=== PATIENT | male | born 1960 | race Caucasian/White ===

== ENCOUNTER → 2020-03-17 08:55 | Outpatient (BNVA) | payer OTHER, SELFPAY | PROVIDERS: PCP Nurse Practitioner Family; Referring Provider Nurse Practitioner Family; Visit Provider Internal Medicine | DX: Z76.89 Persons encountering health services in other specified circumstances (principal) ==

== ENCOUNTER → 2020-04-29 10:12 | Outpatient (BNVA) | payer OTHER, SELFPAY | PROVIDERS: PCP Nurse Practitioner Family; Visit Provider Internal Medicine | DX: Z76.89 Persons encountering health services in other specified circumstances (principal) ==

== ENCOUNTER 2020-05-03 10:27 | Outpatient (REF) | payer OTHER, SELFPAY ==
[2020-05-03 11:43] LABS: Baso%MD 0.4 %; Eos%MD 5.2 %; Hematocrit 41.8 % (42-52); Hemoglobin 13.1 g/dl (14.0-18.0); IG%MD 0.2 %; Lymph%MD 20.8 %; Mean Corpuscular HGB Conc 31.3 g/dl (31.0-36.0); Mean Corpuscular Hemoglobin 27.2 pg (27.0-33.0); Mean Corpuscular Volume 86.7 fL (80-98); Mean Platelet Volume 12.4 fL (9.4-12.4); Mono%MD 5.6 %; Neut%MD 67.8 %; Red Blood Count 4.82 X10*6/uL (4.60-5.80); Red Cell Distribution Width 15.8 % (11.0-16.0); White Blood Count 5.2 X10*3/uL (4.8-10.8)
[2020-05-03 12:20] LABS: Platelet Count 52 X10*3/uL (160-400)
[2020-05-03 12:38] LABS: Band Neutrophils Percent 1 % (3-5); Eosinophils Absolute Manual 0.3 X10*3/UL (0.0-0.8); Eosinophils Percent Manual 5 % (0-4); Lymphocytes Absolute Manual 1.1 X10*3/uL (0.6-4.8); Lymphocytes Percent Manual 21 % (20-40); Monocytes Absolute Manual 0.3 X10*3/uL (0.0-1.2); Monocytes Percent Manual 5 % (2-11); Neutrophils Absolute Manual 3.6 X10*3/uL (2.2-7.9); Neutrophils Percent Manual 68 % (45-73)
[2020-05-03 12:39] LABS: Platelet Estimate DECREASED (NORMAL); Platelet Morphology Comment NORMAL; RBC Morphology NORMAL
== END 2020-05-03 10:28 | disposition home or self-care (01) ==
LOC: HO.HMGCLDS 10:27
PROVIDERS: PCP Nurse Practitioner Family; Visit Provider Nurse Practitioner Family
DX: D47.3 Essential (hemorrhagic) thrombocythemia (principal)
CPT/HCPCS: 36415; 85007; 85027

== ENCOUNTER 2020-05-12 08:09 | Outpatient (REF) | payer OTHER, SELFPAY ==
--- NOTE | 2020-05-12 08:13 | US_ITS ---
EXAMINATION: US THYROID CLINICAL INFORMATION: Nontoxic single thyroid nodule. COMPARISON: Ultrasound soft tissue head/neck thyroid dated 11/06/2018. TECHNIQUE: Linear transducer vela-scale and color Doppler examination with attention to the region of the thyroid. FINDINGS: SIZE: Measurements of the thyroid lobes and nodules are given in sagittal, anteroposterior and transverse dimensions respectively. Right Thyroid Lobe: 4.6 x 1.8 x 2.2 cm, volume 9.6 mL. Previously 5.9 x 2.1 x 1.9 cm, volume 11.9 mL. Parenchyma: The gland echotexture is homogeneous. Thyroid vascularity is normal. Left Thyroid Lobe: 4.5 x 1.9 x 1.9 cm, volume 8.5 mL. Previously 5.2 x 1.7 x 1.7 cm, volume 7.7 mL. Parenchyma: The gland echotexture is homogeneous. Thyroid vascularity is normal. Isthmus: 0.3 cm in maximum AP dimension. Previously 0.4 cm. RIGHT THYROID LOBE: No nodules. ISTHMUS: No nodules. LEFT THYROID LOBE: There is 1 nodule seen. 1. Location: Inferior. Size: 1.7 x 1.4 x 1.4 cm. Previous: 1.6 x 1.5 x 1.3 cm. Nodule characteristics: Heterogeneous, smooth margins with hypoechoic rind, no calcification and peripheral flow. This appears more solid and less cystic than on prior exam. NODES: No lymphadenopathy is seen in the tissue surrounding the thyroid gland. US/US thyroid IMPRESSION: Question minimal increase in size in the left thyroid nodule. This appears more solid and less cystic than on previous exam.
--- NOTE | 2020-05-12 08:13 | CT_ITS ---
EXAMINATION: CT SOFT TISSUE NECK WITHOUT CONTRAST CLINICAL INFORMATION: Nontoxic single thyroid nodule COMPARISON: None TECHNIQUE: Helical imaging was performed in the axial plane with generation of coronal and sagittal reformatted images. This CT examination was performed using dose optimization techniques as appropriate, variously including the following: *Automated exposure control *Adjustment of mA and/or kV according to patient size (this includes techniques or standardized protocols for targeted exams where dose is matched to indication/reason for exam; i.e. extremities or head) *Use of iterative reconstruction technique DLP: 454 mGy-cm FINDINGS: There are small shotty lymph nodes in the anterior neck. The parotid glands are homogeneous in attenuation. The submandibular glands are normal. No contour abnormality or pathologic enhancement is seen within the oral cavity or pharyngeal mucosal space. There is an ectatic right internal carotid artery extending medially into the retropharyngeal soft tissues. The laryngeal structures are normal. The parapharyngeal fat is preserved. The carotid sheath vasculature opacify normally. No extra mucosal soft tissue mass or fluid collection is seen. No retropharyngeal fluid collection is seen. There is solitary hypodense nodule, lower pole left thyroid lobe measuring 1.5 x 1.0 x 1.23 cm. The superior mediastinum is unremarkable. There is mild emphysematous changes of upper lobes with the loss of left lung volume. There is chronic mucoperiosteal thickening bilateral ethmoid and maxillary sinuses. The rest of the paranasal sinuses are well aerated. The mastoid sinuses are clear. The temporomandibular joints are normal. There are degenerative disc changes C4-C5, C5-C6 and C6-C7 disc levels with ventral and posterior spondylosis. No lytic process seen. No periapical disease is identified. No osseous abnormalities are seen. The imaged portions of the brain parenchyma are unremarkable. CT/CT soft tissue neck wo con IMPRESSION: 1. Solitary nodule left lower pole. 2. No abnormal neck lymphadenopathy seen. 3. Ectatic right internal carotid artery extending medially into the retropharyngeal space. 4. Chronic bilateral maxillary ethmoid sinuses.
== END 2020-05-12 08:10 | disposition home or self-care (01) ==
LOC: HO.CT 08:09
PROVIDERS: Visit Provider Internal Medicine
DX: E04.1 Nontoxic single thyroid nodule (principal)
CPT/HCPCS: 70490; 76536

== ENCOUNTER → 2020-05-20 11:54 | Outpatient (BNVA) | payer OTHER, SELFPAY | PROVIDERS: PCP Nurse Practitioner Family; Visit Provider Internal Medicine ==

== ENCOUNTER 2020-05-24 10:55 | Outpatient (REF) | payer OTHER, SELFPAY ==
--- NOTE | 2020-05-24 11:01 | US_ITS ---
EXAMINATION: ULTRASOUND-GUIDED THYROID FINE-NEEDLE ASPIRATION CLINICAL INFORMATION: Left thyroid nodule COMPARISON: Previous thyroid ultrasound most recent April 2020 TECHNIQUE: Procedure risks and benefits including bleeding and infection were discussed with the patient and informed consent was obtained. The left neck was prepped and draped in usual sterile fashion. The skin and soft tissues were anesthetized with 1% lidocaine plain. Using ultrasound guidance and a 25-gauge needle, access to the complex cystic nodule in the inferior left lobe was obtained. 2 25-gauge FNA specimens were obtained. FINDINGS: There is a 1.7 x 1.5 x 1.4 cm complex cystic nodule in the inferior left lobe with thick echogenic wall that was targeted for fine-needle aspiration. Post fine-needle aspiration, the cystic component is no longer seen and the nodule appears smaller and slightly hyperechoic with respect to the thyroid gland. US/US guided fine needle asp IMPRESSION: Ultrasound-guided fine-needle aspiration of left thyroid nodule.
[2020-05-24] MEDS: Lidocaine HCl 1 % MPF 5 ML VIAL SUBCUT (12:11)
== END 2020-05-24 10:56 | disposition home or self-care (01) ==
LOC: HO.US 10:55
PROVIDERS: PCP Nurse Practitioner Family; Visit Provider Internal Medicine
DX: E04.1 Nontoxic single thyroid nodule (principal)
CPT/HCPCS: 10005; 88172; 88173; 88305

== ENCOUNTER → 2020-06-23 14:39 | Outpatient (BNVA) | payer OTHER, SELFPAY | PROVIDERS: PCP Nurse Practitioner Family; Visit Provider Nurse Practitioner Family ==

== ENCOUNTER → 2020-07-01 08:46 | Outpatient (BNVA) | payer OTHER, SELFPAY | PROVIDERS: PCP Nurse Practitioner Family; Visit Provider Internal Medicine ==

== ENCOUNTER → 2020-07-12 14:00 | Outpatient (BNVA) | payer OTHER, SELFPAY | PROVIDERS: PCP Nurse Practitioner Family; Visit Provider Internal Medicine Pulmonary Disease | DX: Z01.811 Encounter for preprocedural respiratory examination (principal); J44.9 Chronic obstructive pulmonary disease, unspecified; F17.200 Nicotine dependence, unspecified, uncomplicated; Z71.6 Tobacco abuse counseling | CPT/HCPCS: 99202 ==

== ENCOUNTER → 2020-07-19 13:28 | Outpatient (BNVA) | payer OTHER, SELFPAY | PROVIDERS: PCP Nurse Practitioner Family; Visit Provider Internal Medicine Gastroenterology | DX: Z12.11 Encounter for screening for malignant neoplasm of colon (principal); K74.60 Unspecified cirrhosis of liver; D69.6 Thrombocytopenia, unspecified; Z90.81 Acquired absence of spleen | CPT/HCPCS: 99212 ==

== ENCOUNTER → 2020-07-29 16:00 | Outpatient (BNVA) | payer OTHER, SELFPAY | PROVIDERS: PCP Nurse Practitioner Family; Visit Provider Internal Medicine Gastroenterology ==

== ENCOUNTER 2020-08-16 11:01 | Outpatient (REF) | payer OTHER, SELFPAY ==
--- NOTE | ~2020-08-16 | US_ITS ---
EXAMINATION: US ABDOMEN COMPLETE CLINICAL INFORMATION: Thrombocytopenia, unspecified. COMPARISON: Ultrasound kidneys 11/22/2018. Ultrasound kidneys and bladder 07/15/2018. CT abdomen 01/05/2016. TECHNIQUE: Real-time imaging of the abdominal viscera. FINDINGS: PANCREAS: Obscured by bowel gas. ABDOMINAL AORTA: Obscured by bowel gas. INFERIOR VENA CAVA: Visualized portions are normal. LIVER: Diffuse increased echogenicity. Heterogeneous echotexture of the parenchyma. Apparent mild intrahepatic biliary duct dilatation. No focal liver lesion. GALLBLADDER: Gallbladder is distended. No shadowing calculi. No gallbladder wall thickening. Questionable trace pericholecystic fluid. Nonspecific tenderness in the area of the gallbladder. COMMON BILE DUCT: Normal in caliber measuring 0.6 cm in diameter. RIGHT KIDNEY: Surgically absent. LEFT KIDNEY: Normal. No hydronephrosis. No renal calculi or focal parenchymal lesions. The kidney measures 11.7 cm in maximum dimension. SPLEEN: Enlarged. The spleen measures 24.3 cm in maximum dimension. FREE FLUID: None. US/US abdomen complete IMPRESSION: 1. There is generalized increase in hepatic echotexture, consistent with fatty infiltration or hepatocellular disease. Please correlate clinically. No focal hepatic mass. Mild intrahepatic biliary duct dilatation is seen. 2. No cholelithiasis seen. Gallbladder is distended. Questionable trace pericholecystic fluid. Nonspecific tenderness in the area of the gallbladder. Findings of indeterminate etiology. Further evaluation with HIDA scan as clinically warranted. 3. Splenomegaly. Spleen measures 24.3 cm. This was previously measured as 16.3 cm on the prior ultrasound 11/22/2018. 4. Right kidney surgically absent. 5. Pancreas obscured by bowel gas.
[2020-08-16 12:08] LABS: Hematocrit 42.1 % (42-52); Hemoglobin 13.6 g/dl (14.0-18.0); Mean Corpuscular HGB Conc 32.3 g/dl (31.0-36.0); Mean Corpuscular Hemoglobin 27.8 pg (27.0-33.0); Mean Corpuscular Volume 86.1 fL (80-98); Mean Platelet Volume 12.5 fL (9.4-12.4); Red Blood Count 4.89 X10*6/uL (4.60-5.80); Red Cell Distribution Width 15.3 % (11.0-16.0); White Blood Count 6.5 X10*3/uL (4.8-10.8)
[2020-08-16 12:13] LABS: INTERNATIONAL NORM RATIO 1.2 (0.9-1.1); Prothrombin Time 14.1 SEC (10.8-13.0)
[2020-08-16 12:19] LABS: Platelet Count 52 X10*3/uL (160-400)
[2020-08-16 12:50] LABS: Alanine Aminotransferase 24 U/L (0-40); Albumin Level 4.5 g/dL (3.5-5.0); Alkaline Phosphatase 118 U/L (39-117); Anion Gap 12 (12-20); Aspartate Amino Transferase 27 U/L (5-37); Blood Urea Nitrogen 23 mg/dL (9-16); Calcium 8.7 mg/dL (8.4-10.2); Carbon Dioxide 23 mmol/L (22-29); Chloride 106 mmol/L (96-108); Cholesterol 103 mg/dL; Estimated Glomerular Filt Rate 58; Glucose Fasting 119 mg/dL (60-99); HDL Cholesterol 26 mg/dL; LDL Cholesterol Calculated 49 mg/dl; Sodium 136 mmol/L (135-145); Total Protein 7.9 g/dL (6.5-8.0); Triglycerides 140 mg/dL
[2020-08-16 12:57] LABS: Free T4 (Free Thyroxine) 0.88 ng/dL (0.71-1.85); Thyroid Stimulating Hormone 1.09 uIU/mL (0.32-4.0)
[2020-08-16 13:11] LABS: Prostate Specific Antigen Scr 0.37 ng/mL (<0.05-4.0); TSH reflex Free T4 0.98 uIU/mL (0.32-4.0)
[2020-08-17 18:26] LABS: HCV Log PCR <1.18 NOT DETECTED Log IU/mL (NOT DETECTED); HepC Viral Load <15 NOT DETECTED IU/mL (NOT DETECTED)
[2020-08-18 10:01] LABS: Mitochondrial Antibodies NEGATIVE (NEGATIVE)
[2020-08-19 15:07] LABS: FIB-ALT 20 U/L (9-46); FIB-Alpha-2-Macroglobulin 320 mg/dL (106-279); FIB-Apolipoprotein A1 116 mg/dL (94-176); FIB-GGT 197 U/L (3-70); FIB-Haptoglobin 42 mg/dL (43-212); FIB-Total Bilirubin 0.8 mg/dL (0.2-1.2); Liver Fibrosis Stage F4; Nec Inflam Act Grade A0-A1; Nec Inflam Act Score 0.18
[2020-08-24 12:02] LABS: Smooth Muscle Antibody <20 U (<20)
== END 2020-08-16 11:02 | disposition home or self-care (01) ==
LOC: HO.US 11:01
PROVIDERS: Absent Provider Internal Medicine; PCP Nurse Practitioner Family; Referring Provider Nurse Practitioner Family; Visit Provider Internal Medicine Gastroenterology
DX: Z12.5 Encounter for screening for malignant neoplasm of prostate (principal); Z12.11 Encounter for screening for malignant neoplasm of colon; E04.1 Nontoxic single thyroid nodule; K74.60 Unspecified cirrhosis of liver; D69.6 Thrombocytopenia, unspecified
CPT/HCPCS: 36415; 76700; 80053; 80061; 81596; 84153; 84439; 84443; 85027; 85610; 86255; 86256; 87522

== ENCOUNTER → 2020-10-07 10:49 | Outpatient (REF) | payer OTHER, SELFPAY ==
--- NOTE | ~2020-10-07 | NM_ITS ---
EXAMINATION: NM HIDA SCAN CLINICAL INFORMATION: Nonspecific tenderness right upper quadrant with pericystic fluid collection on ultrasound exam 08/16/2020. COMPARISON: None TECHNIQUE: Following intravenous administration of 5 mCi of 99m technetium mebrofenin, imaging over the right upper quadrant was obtained up to 60 minutes. At 60 minutes, oral Ensure was administered and further imaging was obtained up to next 60 minutes. FINDINGS: There is normal hepatic uptake with no focal defects seen. The CBD is visualized by 27 minutes. Small bowel is visualized by 60 minutes. Gallbladder is visualized by 86 minutes. Following oral administration of Ensure, no gallbladder contraction seen. However, the gallbladder was delayed, visualized by 86 minutes. NM/NM hepatobiliary wo pharm IMPRESSION: Delayed visualization of gallbladder by 86 minutes, likely gallbladder disease. Gallbladder ejection fraction cannot be calculated due to delayed visualization after oral administration of Ensure. Patent cystic duct and patent CBD.
[2020-10-07 15:17] LABS: Estimated Average Glucose 108 mg/dL; Hemoglobin A1c % 5.4 %
[2020-10-07 15:30] LABS: Alanine Aminotransferase 18 U/L (0-40); Albumin Level 4.4 g/dL (3.5-5.0); Alkaline Phosphatase 106 U/L (39-117); Anion Gap 14 (12-20); Aspartate Amino Transferase 24 U/L (5-37); Bilirubin Total 0.8 mg/dL (0.0-1.0); Blood Urea Nitrogen 18 mg/dL (9-16); Carbon Dioxide 25 mmol/L (22-29); Chloride 106 mmol/L (96-108); Cholesterol 106 mg/dL; Estimated Glomerular Filt Rate 58; Glucose Fasting 103 mg/dL (60-99); HDL Cholesterol 26 mg/dL; LDL Cholesterol Calculated 49 mg/dl; Potassium 4.8 mmol/L (3.3-5.1); Sodium 140 mmol/L (135-145); Total Protein 7.6 g/dL (6.5-8.0); Triglycerides 157 mg/dL
[2020-10-07 15:49] LABS: Prostate Specific Antigen Scr 0.83 ng/mL (<0.05-4.0); TSH reflex Free T4 0.45 uIU/mL (0.32-4.0)
== END ==
LOC: HO.NUCMED 10:49
PROVIDERS: Nurse Practitioner Family; Visit Provider Internal Medicine Gastroenterology
DX: R93.2 Abnormal findings on diagnostic imaging of liver and biliary tract (principal); I10 Essential (primary) hypertension; R73.01 Impaired fasting glucose; Z12.5 Encounter for screening for malignant neoplasm of prostate
CPT/HCPCS: 36415; 78226; 80053; 80061; 83036; 84153; 84443; A9537

== ENCOUNTER → 2020-10-29 10:52 | Outpatient (BNVA) | payer OTHER, SELFPAY | PROVIDERS: PCP Nurse Practitioner Family; Visit Provider Internal Medicine Pulmonary Disease | DX: J44.9 Chronic obstructive pulmonary disease, unspecified (principal) | CPT/HCPCS: 99212 ==

== ENCOUNTER → 2020-11-08 13:28 | Outpatient (BNVA) | payer OTHER, SELFPAY | PROVIDERS: Referring Provider Nurse Practitioner Family; Visit Provider Internal Medicine Gastroenterology | DX: R93.2 Abnormal findings on diagnostic imaging of liver and biliary tract (principal); Z12.11 Encounter for screening for malignant neoplasm of colon; J44.9 Chronic obstructive pulmonary disease, unspecified; K74.60 Unspecified cirrhosis of liver; D69.6 Thrombocytopenia, unspecified; Z90.81 Acquired absence of spleen; Z86.19 Personal history of other infectious and parasitic diseases | CPT/HCPCS: 99212 ==

== ENCOUNTER 2021-03-09 09:55 | Outpatient (REF) | payer OTHER, SELFPAY ==
--- NOTE | ~2021-03-09 | XR_ITS ---
EXAMINATION: XR CHEST CLINICAL INFORMATION: Cough. COMPARISON: Chest x-ray 08/09/2018. TECHNIQUE: 2 views of the chest were obtained. FINDINGS: The lungs are well-expanded and clear acute process. There is mild blunting of left CP angle from pleural thickening or effusion. The heart size and pulmonary vascularity is normal. XR/XR chest 2V IMPRESSION: Mild blunting of left CP angle from pleural effusion and thickening. No acute pneumonic process seen.
== END 2021-03-09 09:56 | disposition home or self-care (01) ==
LOC: HO.HMGCX 09:55
PROVIDERS: PCP Nurse Practitioner Family; Visit Provider Physician Assistant Medical
DX: R05.9 Cough, unspecified (principal); J44.9 Chronic obstructive pulmonary disease, unspecified
CPT/HCPCS: 71046

== ENCOUNTER 2021-07-18 08:50 | Outpatient (REF) | payer OTHER, SELFPAY ==
--- NOTE | ~2021-07-18 | US_ITS ---
EXAMINATION: US THYROID CLINICAL INFORMATION: Nontoxic single thyroid nodule. COMPARISON: Thyroid ultrasound 05/12/2020. Ultrasound-guided thyroid fine-needle aspiration 05/24/2020. TECHNIQUE: Linear transducer vela-scale and color Doppler examination with attention to the region of the thyroid. FINDINGS: SIZE: Measurements of the thyroid lobes and nodules are given in sagittal, anteroposterior and transverse dimensions respectively. Right Thyroid Lobe: 5.0 x 1.6 x 1.7 cm, volume 7.0 mL. Previously 4.6 x 1.8 x 2.2 cm, volume 9.6 mL. Parenchyma: The gland echotexture is homogeneous. Thyroid vascularity is normal. Left Thyroid Lobe: 4.6 x 2.1 x 1.6 cm, volume 7.8 mL. Previously 4.5 x 1.9 x 1.9 cm, volume 8.5 mL. Parenchyma: The gland echotexture is homogeneous. Thyroid vascularity is normal. Isthmus: 0.2 cm in maximum AP dimension. Previously 0.3 cm. Estimated total number of nodules greater than or equal to 1 cm: 1. Marketing Support Manager nodules are described as follows: 1. Location: Left inferior. Size: 1.9 x 1.6 x 1.3 cm, volume 2.0 mL. Previously: 1.7 x 1.4 x 1.4 cm, volume 1.7 mL. Nodule characteristics: Composition: Mixed cystic and solid (1). Echogenicity: Hyperechoic (1). Shape: Taller than wide (3). Margins: Smooth (0). Echogenic Foci: None (0). ACR TI-RADS total points: 5 ACR TI-RADS category: 4 Significant change in size (>/= 20% in 2 dimensions and minimal increase of 2 mm or 50% or greater increase in volume): None Change in features: Not applicable Change in ACR TI-RADS risk category: Not applicable NODES: No lymphadenopathy is seen in the tissue surrounding the thyroid gland. US/US thyroid IMPRESSION: Mixed attenuation nodule lower pole left lobe, suspicious. Recommend short-term six-month to one-year follow-up.. ACR TI-RADS RECOMMENDATION REFERENCE: Ultrasound-guided fine-needle aspiration, followup ultrasound, no further follow up. * TR1 (0 point) and TR 2 (2 points): No FNA or follow up * TR3 (3 points): FNA if more than or equal to 2.5 cm in maximum dimension, followup ultrasound in 1, 3 and 5 years if 1.5 to 2.4 cm in maximum dimension. * TR4 (4-6 points): FNA if more than or equal to 1.5 cm in maximum dimension, followup ultrasound in 1, 2, 3 and 5 years if 1 to 1.4 cm in maximum dimension. * TR5 (more than or equal to 7 points): FNA if more than or equal to 1 cm in maximum dimension, followup ultrasound every year for 5 years if 0.5 to 0.9 cm in maximum dimension. * TR3, TR4 or TR5 nodules that are below the size threshold for follow up receive no follow up.
== END 2021-07-18 08:51 | disposition home or self-care (01) ==
LOC: HO.US 08:50
PROVIDERS: PCP Nurse Practitioner Family; Visit Provider Internal Medicine
DX: E04.1 Nontoxic single thyroid nodule (principal)
CPT/HCPCS: 76536

== ENCOUNTER 2023-01-09 10:27 | Outpatient (AMB) | payer OTHER, SELFPAY ==
--- NOTE | 2023-01-09 10:57 | A.OFFPC_ITS ---
Vital Signs 01/09/23 10:58 Height 5 ft 10 in Weight 189 lb BMI 27.1 BP 110/74 Blood Pressure Location Rt brachial Position Sitting Pulse 75 Pulse Source Pulse Oximeter Pulse Oximetry (%) 97 Oxygen Delivery Method Room Air Intake Visit Reasons: 3m follow up htn Allergies No Known Allergies [No Known Allergies*] Allergy (Verified 01/09/23 11:00) Medication List - Last Reconciled 01/09/23 by JOSE Desir albuterol sulfate 2.5 mg (3 mL) inhalation Q8H PRN 30 days atorvastatin 40 mg PO DAILY [id number] 50-325-40 mg 1 tab PO ONCE PRN 30 days clonazepam 1 mg PO TID metoprolol tartrate 50 mg PO DAILY 30 days ondansetron HCl 4 - 8 mg PO Q8H PRN prednisone 20 mg PO DAILY 3 days umeclidinium-vilanterol 62.5-25 mcg/actuation (Anoro Ellipta) 1 ea PO DAILY Tobacco use date assessed: 01/09/23 Dental Screening Dental Screen Date: 01/09/23 Did you have a dental visit in the last 12 months?: No Did you have a dental problem in the last 6 months where you did not have access to dental care?: No Was dental information given to patient?: No HPI 3m follow up htn HPI Details HTN: Blood pressure is stable, managed with metoprolol 50mg. Denies chest pain, excessive shortness of breath, headache, dizziness, and blurred vision. Pt is following up with oncology due to lung cancer. Pt was given doxy and prednisone for possible sinusitis and otitis media. Pt did not finish the course of prednisone as it caused vomiting. Will send 3 more days of prednisone, pt will take this with food. Pt saw GI in 2020 and was advised to schedule a colon screen but he did not do this. encouraged pt to get his labs drawn [facility] Medical History (Updated 01/09/23 @ 12:28 by JOSE Desir) Squamous cell carcinoma of left lung Neuropathy HTN (hypertension) Kidney carcinoma COPD (chronic obstructive pulmonary disease) Cirrhosis Vitamin D deficiency Thrombocytopenia Thyroid nodule Surgical History History of lung biopsy Hx of anterior cruciate ligament surgery History of right nephrectomy Family History Father Cancer CVD (cardiovascular disease) S/P triple vessel bypass Mother Lung cancer Diabetes Social History Household Members: None Housing: House Alcohol intake: current Alcohol intake frequency: does not drink Patient Tobacco Use Status: Current someday Tobacco user Years Smoked: 30 Packs per year/per ci e-Cigarette/Vaping Use: Never Used Second Hand Smoke Exposure: Yes Current occupational status: retired Cognitive needs: No Hearing needs: No Vision needs: Yes Questionnaire Thrive Questionnaire Date Thrive assessed: 05/29/22 JOSE-7 AMB Questionnaire JOSE-7 Date JOSE - 7 assessed: 05/29/22 Source: Developed by Drs. Joseph Sheridan, Inés Dozier, Diallo Cárdenas and colleagues, with an educational keaton from [employer]. Review of Systems Const Reports as per HPI Physical exam (Primary Care) Vital Signs: Last Vital Signs Pulse 75 01/09/23 10:58 BP 110/74 01/09/23 10:58 Pulse Ox 97 01/09/23 10:58 Oxygen Delivery Method Room Air 01/09/23 10:58 BMI result Body Mass Index 27.1 Tobacco/Smoking Status: Tobacco use Status Tobacco use date assessed 01/09/23 01/09/23 11:05 Patient Tobacco Use Status Current someday Tobacco 01/09/23 11:05 e-Cigarette/Vaping Use Never Used 01/09/23 11:05 Thrive Assessment: Date of Thrive Assessment Date Thrive assessed 05/29/22 01/09/23 11:05 Const General: cooperative Orientation/consciousness: patient oriented x3 HENMT Head: Yes normal to inspection Ears: TM's normal bilaterally Neck Lymphatic: no lymphadenopathy noted Resp Effort & Inspection: normal respiratory effort Auscultation: wheezes throughout Cardio Rate: regular rate Rhythm: regular rhythm Heart sounds: S1 normal heart sound present and S2 normal heart sound present Neuro General: patient oriented x3 Extrem Other: no edema to BLE Psych Appearance: grossly normal Mental Status: mental status grossly normal Speech and movement: Normal speech and movement present Affect: normal affect Attitude: cooperative Thought process: Normal thought process present Thought content: Normal thought content present Insight: Good insight present (Psych) Judgement: Good judgement present (Psych) Assessment and Plan Assessment & Plan (1) HTN (hypertension): Code(s): I10 - Essential (primary) hypertension (2) Illness: Code(s): R69 - Illness, unspecified Plan The patient agreed to the use of a medical imaging technologist for this encounter. Scribed for JOSE Holcomb by Palma Tanner medical imaging technologist, on 01/09/2023 at 11:15 EST. Medications: New prednisone 20 mg PO DAILY 3 tabs 0RF 3 days Refilled [id number]-[id number] 50-325-40 mg please use sparingly, can cause rebound headaches and can be addictive 1 tab PO ONCE PRN 30 tabs 0RF pain 30 days Coding Level of Care Code Est Pt Level 3 (58862) Diagnoses HTN (hypertension) I10 Illness R69
[2023-01-09 10:58] VITALS: BP 110/74; PULSE 75; O2SAT 97; BMI 27.1
== END 2023-01-09 12:04 | disposition home or self-care (01) ==
PROVIDERS: PCP Nurse Practitioner Family; Visit Provider Nurse Practitioner Family
DX: I10 Essential (primary) hypertension (principal); R69 Illness, unspecified
CPT/HCPCS: 99213

== ENCOUNTER 2023-07-25 10:37 | Outpatient (REF) | payer OTHER, SELFPAY ==
[2023-07-25 13:29] LABS: MANUAL DIFF FLAG NO
[2023-07-25 13:49] LABS: Basophils Percent Auto 0.5 % (0-2); Eosinophils Absolute Auto 0.1 X10*3/uL (0.0-0.4); Eosinophils Percent Auto 3.4 % (0-4); Hematocrit 25.1 % (42.0-52.0); Imm Gran Abs Auto 0.02 X10*3/uL (0.00-0.03); Imm Gran Pct Auto 0.5 % (0.0-0.4); Lymphocytes Absolute Auto 0.7 X10*3/uL (1.2-4.9); Lymphocytes Percent Auto 17.2 % (20-40); Mean Corpuscular HGB Conc 27.5 g/dl (31.0-36.0); Mean Corpuscular Hemoglobin 21.2 pg (27.0-33.0); Monocytes Absolute Auto 0.3 X10*3/uL (0.1-1.2); Monocytes Percent Auto 6.8 % (2-11); Neutrophils Absolute Auto 2.8 x10*3/uL (2.0-8.3); Neutrophils Percent Auto 71.6 % (45-73); Red Blood Count 3.26 X10*6/uL (4.60-5.80); Red Cell Distribution Width 17.8 % (11.0-16.0); White Blood Count 3.8 X10*3/uL (4.8-10.8)
[2023-07-25 14:10] LABS: Platelet Count 39 X10*3/uL (160-400)
[2023-07-25 14:12] LABS: Hemoglobin 6.9 g/dl (14.0-18.0)
[2023-07-25 14:21] LABS: Prostate Specific Antigen Scr 0.33 ng/mL (<0.05-4.0)
[2023-07-25 14:27] LABS: Alanine Aminotransferase 19 U/L (0-40); Albumin Level 3.5 g/dL (3.5-5.0); Alkaline Phosphatase 71 U/L (39-117); Anion Gap 9 (12-20); Aspartate Amino Transferase 22 U/L (5-37); Bilirubin Total 0.4 mg/dL (0.0-1.0); Blood Urea Nitrogen 17 mg/dL (9-16); Calcium 8.6 mg/dL (8.4-10.2); Carbon Dioxide 29 mmol/L (22-29); Chloride 107 mmol/L (96-108); Cholesterol 87 mg/dL (<200); Estimated Glomerular Filt Rate > 60; Glucose Fasting 113 mg/dL (60-99); HDL Cholesterol 37 mg/dL (>40); LDL Cholesterol Calculated 36 mg/dL (<100); Potassium 4.4 mmol/L (3.3-5.1); Sodium 141 mmol/L (135-145); Total Protein 6.6 g/dL (6.5-8.0); Triglycerides 73 mg/dL (<150)
== END 2023-07-25 10:38 | disposition home or self-care (01) ==
LOC: HO.HMGCLDS 10:37
PROVIDERS: PCP Nurse Practitioner Family; Visit Provider Nurse Practitioner Family
DX: I10 Essential (primary) hypertension (principal); Z12.5 Encounter for screening for malignant neoplasm of prostate
CPT/HCPCS: 36415; 80053; 80061; 84153; 84443; 85025

== ENCOUNTER 2023-07-25 16:29 | Emergency (ER) | payer OTHER, SELFPAY ==
[2023-07-25 17:22] VITALS: BP 116/57; PULSE 82; RESP 20; TEMP 36.3; O2SAT 99; BMI 24.4
--- NOTE | 2023-07-25 17:24 | ED_ITS ---
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 , thrombocytopenia history of PE on Eliquis does have off and on black stools sent from PCP office for hemoglobin 7.0 patient had blood transfusion long time ago feels weak no abdominal pain patient's usual hemoglobin is around 11 according to patient Related Data Home Medications Medication Instructions Recorded Confirmed clonazepam 1 mg tablet 1 mg PO TID 03/17/20 01/09/23 ondansetron HCl 4 mg tablet 4 - 8 mg PO Q8H PRN nausea 09/28/22 01/09/23 Previous Rx's Medication Instructions Recorded atorvastatin 40 mg tablet 40 mg PO DAILY #90 tabs 09/14/22 prednisone 20 mg tablet 20 mg PO DAILY 3 days #3 tabs 01/09/23 umeclidinium 62.5 mcg-vilanterol 1 ea PO DAILY #180 ea 04/03/23 25 mcg/actuation powdr for inhalation (Anoro Ellipta) ingyaqtipo-zpaunpjxongul-zvrwlfad 1 tab PO ONCE PRN pain 30 days #30 04/12/23 50 mg-325 mg-40 mg tablet tabs albuterol sulfate 2.5 mg/3 mL 2.5 mg (3 mL) inhalation Q8H PRN 06/04/23 (0.083 %) solution for nebulization shortness of breath or wheezing 30 days #180 mL Ventolin HFA 90 mcg/actuation 1 puff inhalation QID PRN 07/07/23 aerosol inhaler (albuterol sulfate) shortness of breath or wheezing #8 grams metoprolol tartrate 50 mg tablet 50 mg PO DAILY 30 days #30 tabs 07/07/23 Allergies Allergy/AdvReac Type Severity Reaction Status Date / Time No Known Allergies Allergy Verified 01/09/23 11:00 [No Known Allergies*] Review of Systems 2 Review of Systems: Yes all other systems are reviewed and are negative PMFSH Past Medical History Medical History Squamous cell carcinoma of left lung Neuropathy HTN (hypertension) Kidney carcinoma COPD (chronic obstructive pulmonary disease) Cirrhosis Vitamin D deficiency Thrombocytopenia Thyroid nodule Surgical History History of lung biopsy Hx of anterior cruciate ligament surgery History of right nephrectomy Family History Family History Father Cancer CVD (cardiovascular disease) S/P triple vessel bypass Mother Lung cancer Diabetes Social History Social History Household Members: None Housing: House Alcohol intake: current Alcohol intake frequency: does not drink Patient Tobacco Use Status: Current someday Tobacco user Years Smoked: 30 Smoked in Last 30 Days: No e-Cigarette/Vaping Use: Never Used Second Hand Smoke Exposure: Yes Use of substances other than those prescribed or required for medical reasons: No Advance Directives: No Advance Directives Information Provided: No Current occupational status: retired Cognitive needs: No Hearing needs: No Vision needs: Yes Physical Exam ED Vital Signs: Vital Signs - 24 hr 07/25/23 17:22 07/25/23 20:11 07/25/23 21:18 Temperature 97.3 F 97.6 F 97.5 F Pulse Rate 82 73 74 Respiratory Rate 20 16 15 Blood Pressure 116/57 L 110/50 L 111/72 Pulse Oximetry 99 97 Oxygen Delivery Method Room Air Room Air 07/25/23 21:35 07/25/23 21:35 07/25/23 22:26 Temperature 97.5 F 98.1 F Pulse Rate 77 79 Respiratory Rate 15 16 Blood Pressure 128/55 L 113/65 Pulse Oximetry 97 97 Oxygen Delivery Method Room Air Room Air 07/25/23 23:34 07/26/23 00:04 07/26/23 00:05 Temperature 98.2 F 97.3 F 97.7 F Pulse Rate 80 87 80 Respiratory Rate 16 16 18 Blood Pressure 118/67 112/73 112/73 Pulse Oximetry 98 97 Oxygen Delivery Method Room Air Room Air 07/26/23 00:10 Temperature 97.7 F Pulse Rate 80 Respiratory Rate 18 Blood Pressure 112/73 Pulse Oximetry 97 Oxygen Delivery Method Room Air BMI result Body Mass Index 24.4 Appearance: Alert. Oriented X3. No acute distress. Eyes: pallor+ no icterus ENT: Pharynx normal. Oral Mucosa moist Neck: Normal inspection. Neck supple. CVS: Normal heart rate and rhythm. Pulses normal. Respiratory: No respiratory distress. Equal air entry bilateral, no wheezing/rales/rhonchi Abdomen: Soft and nontender. Bowel sounds are present, no mass palpable, no CVA tenderness rectal: Brown stool guaiac negative Skin: Skin warm and dry. Normal skin color. Normal skin turgor. Extremities: No lower extremity edema. No calf tenderness Neuro: Oriented X 3. No motor deficit. Course Course Course Narrative: This is an RME: Additional HPI, ROS, PE not included below will be deferred to primary provider. This is a 63-year-old male, with a history of hypertension, squamous cell carcinoma along, COPD exacerbation, thrombocytopenia, splenomegaly, hepatitis-C with completed treatment substance use disorder, presenting to the emergency department due to abnormal labs. He was told that his blood count was low and had to reports the emergency room for further evaluation. He states that he at times does get a bloody nose. Has not noticed any black or bloody stool. He is reporting increased weakness and shortness of breath. He was recently put on Eliquis. Plan: Labs Medications Administered Discontinued Medications Generic Name Dose Route Start Last Admin Trade Name Freq PRN Reason Stop Dose Admin Sodium Chloride 100 mls @ 100 mls/hr 07/25/23 19:57 07/25/23 22:35 Ns IV 07/25/23 20:56 Infused ONCE ONE Infusion Medical Decision Making Medical Decision Making [facility] Narrative: Patient with lung cancer with thrombocytopenia anemia unlikely from chronic disease secondary to cancer. Patient received 1 unit of PRBC , advised to follow with PCP/Hematology Lab Data [facility] Lab Attestation statement: I reviewed the patient's lab results. 07/25/23 17:46 07/25/23 17:46 Labs: Lab Results 07/25/23 07/25/23 07/26/23 Range/Units 17:46 20:05 00:08 WBC 4.9 (4.8-10.8) X10*3/uL RBC 3.34 L (4.60-5.80) X10*6/uL Hgb 7.0 L* (14.0-18.0) g/dl Hct 25.5 L (42.0-52.0) % MCV 76.3 L (80.0-98.0) fL MCH 21.0 L (27.0-33.0) pg MCHC 27.5 L (31.0-36.0) g/dl RDW 17.9 H (11.0-16.0) % Plt Count 44 L (160-400) X10*3/uL MPV Not Reportable Immature Gran % (Auto) 0.2 (0.0-0.4) % Neut % (Auto) 83.4 H (45-73) % Lymph % (Auto) 9.0 L (20-40) % Swisher % (Auto) 4.3 (2-11) % Eos % (Auto) 2.7 (0-4) % Baso % (Auto) 0.4 (0-2) % Lymph # (Auto) 0.4 L (1.2-4.9) X10*3/uL Swisher # (Auto) 0.2 (0.1-1.2) X10*3/uL Eos # (Auto) 0.1 (0.0-0.4) X10*3/uL Baso # (Auto) 0.0 (0.0-0.2) X10*3/uL Abs Immat Gran (auto) 0.01 (0.00-0.03) X10*3/uL Absolute Neuts (auto) 4.1 (2.0-8.3) x10*3/uL Absolute Nucleated RBC 0.000 (0.0-0.012) X10*3/uL Nucleated RBC % (auto) 0.0 (0.0-0.2) /100WBC PT 23.3 H (11.1-13.3) SEC INR 1.9 H (0.9-1.1) APTT 37.6 H (26.0-36.8) SEC Sodium 141 (135-145) mmol/L Potassium 4.3 (3.3-5.1) mmol/L Chloride 106 (96-108) mmol/L Carbon Dioxide 29 (22-29) mmol/L Anion Gap 10 L (12-20) BUN 17 H (9-16) mg/dL Creatinine 1.23 (0.5-1.4) mg/dL Estim Creat Clear Calc 63.4 Estimated GFR 59 Random Glucose 132 H (60-115) mg/dL Calcium 8.5 (8.4-10.2) mg/dL Magnesium 1.9 (1.6-2.6) mg/dL Iron 15 L (45-160) mcg/dL TIBC 325 (228-428) mcg/dL % Saturation 5 L (15-50) % Unsat Iron Binding 310 ug/dL Total Bilirubin 0.4 (0.0-1.0) mg/dL Direct Bilirubin 0.2 (0.0-0.5) mg/dL AST 19 (5-37) U/L ALT 19 (0-40) U/L Alkaline Phosphatase 76 (39-117) U/L Total Protein 6.8 (6.5-8.0) g/dL Albumin 3.6 (3.5-5.0) g/dL Stool Occult Blood NEGATIVE (NEGATIVE) Blood Type O Positive Antibody Screen NEGATIVE Crossmatch See Detail Discharge Plan Discharge Clinical Impression: Anemia, Squamous cell carcinoma of left lung Patient Disposition: Home, Self-Care Instructions: Lung Cancer (DC), Anemia (ED) Additional Instructions: Follow-up with your cancers specialist Your hemoglobin was 7.0 and platelet counts were 44,000 and your received 1 unit of blood transfusion Prescriptions: No Action atorvastatin 40 mg tablet 40 mg PO DAILY Qty: 90 1RF Anoro Ellipta 62.5-25 mcg/actuation blister with device 1 ea PO DAILY Qty: 180 1RF jtjpsibyws-ltsetsvqfczke-tsnx 50-325-40 mg tablet 1 tab PO ONCE PRN (Reason: pain) 30 Days Qty: 30 0RF Rx Instructions: please use sparingly, can cause rebound headaches and can be addictive albuterol sulfate 2.5 mg /3 mL (0.083 %) solution for nebulization 2.5 mg inhalation Q8H PRN (Reason: shortness of breath or wheezing) 30 Days Qty: 180 6RF albuterol sulfate [Ventolin HFA] 90 mcg/actuation HFA aerosol inhaler 1 puff inhalation QID PRN (Reason: shortness of breath or wheezing) Qty: 8 4RF metoprolol tartrate 50 mg tablet 50 mg PO DAILY 30 Days Qty: 30 3RF Rx Instructions: please dont fill the 100mg tabs please prednisone 20 mg tablet 20 mg PO DAILY 3 Days Qty: 3 0RF ondansetron HCl 4 mg tablet 4 - 8 mg PO Q8H PRN (Reason: nausea) clonazepam 1 mg tablet 1 mg PO TID Interventions: ED Discharge Assessment Last Done: 07/26/23 00:10 Discharge Date/Time: 07/26/23 00:12
[2023-07-25 17:53] LABS: MANUAL DIFF FLAG NO
[2023-07-25 17:56] LABS: Basophils Percent Auto 0.4 % (0-2); Eosinophils Absolute Auto 0.1 X10*3/uL (0.0-0.4); Eosinophils Percent Auto 2.7 % (0-4); Hematocrit 25.5 % (42.0-52.0); Imm Gran Abs Auto 0.01 X10*3/uL (0.00-0.03); Imm Gran Pct Auto 0.2 % (0.0-0.4); Lymphocytes Absolute Auto 0.4 X10*3/uL (1.2-4.9); Mean Corpuscular HGB Conc 27.5 g/dl (31.0-36.0); Mean Corpuscular Volume 76.3 fL (80.0-98.0); Monocytes Absolute Auto 0.2 X10*3/uL (0.1-1.2); Monocytes Percent Auto 4.3 % (2-11); Neutrophils Absolute Auto 4.1 x10*3/uL (2.0-8.3); Neutrophils Percent Auto 83.4 % (45-73); Platelet Count 44 X10*3/uL (160-400); Red Blood Count 3.34 X10*6/uL (4.60-5.80); Red Cell Distribution Width 17.9 % (11.0-16.0); White Blood Count 4.9 X10*3/uL (4.8-10.8)
[2023-07-25 18:01] LABS: INTERNATIONAL NORM RATIO 1.9 (0.9-1.1); Prothrombin Time 23.3 SEC (11.1-13.3)
[2023-07-25 18:03] LABS: Partial Thromboplastin Time 37.6 SEC (26.0-36.8)
[2023-07-25 18:09] LABS: Alanine Aminotransferase 19 U/L (0-40); Albumin Level 3.6 g/dL (3.5-5.0); Alkaline Phosphatase 76 U/L (39-117); Anion Gap 10 (12-20); Aspartate Amino Transferase 19 U/L (5-37); Bilirubin Direct 0.2 mg/dL (0.0-0.5); Bilirubin Total 0.4 mg/dL (0.0-1.0); Blood Urea Nitrogen 17 mg/dL (9-16); Calcium 8.5 mg/dL (8.4-10.2); Carbon Dioxide 29 mmol/L (22-29); Chloride 106 mmol/L (96-108); Creatinine Clr Calc Pharmacy 63.4; Estimated Glomerular Filt Rate 59; Glucose Random 132 mg/dL (60-115); Magnesium 1.9 mg/dL (1.6-2.6); Potassium 4.3 mmol/L (3.3-5.1); Sodium 141 mmol/L (135-145); Total Protein 6.8 g/dL (6.5-8.0)
[2023-07-25 20:11] VITALS: BP 110/50; PULSE 73; RESP 16; TEMP 36.4; O2SAT 97
--- NOTE | 2023-07-25 20:14 | MHC.EDTECH ---
This pct just assumed care of patient ,vitals taken and Type and Screen drawn and sent to lab ,Patient was hooked up to ekg monitor ,RN Summer aware of Pt low bp .
[2023-07-25 21:18] VITALS: BP 111/72; PULSE 74; RESP 15; TEMP 36.4
--- NOTE | 2023-07-25 21:24 | PC.NURSE ---
blood transfusion started at 21:20, infusing through #20g iv L upper arm. pt on cardiac catheterization technician. skin p/w/d, speaking clear full sentences.
[2023-07-25 21:35] VITALS: BP 128/55; PULSE 77; RESP 15; TEMP 36.4; O2SAT 97
[2023-07-25 22:26] VITALS: BP 113/65; PULSE 79; RESP 16; TEMP 36.7; O2SAT 97
--- NOTE | 2023-07-25 22:35 | PC.NURSE ---
pt tolerating blood transfusion well. no adverse reactions noted.
[2023-07-25 23:34] VITALS: BP 118/67; PULSE 80; RESP 16; TEMP 36.8; O2SAT 98
[2023-07-26 00:04] VITALS: BP 112/73; PULSE 87; RESP 16; TEMP 36.3; O2SAT 97
[2023-07-26 00:05] VITALS: BP 112/73; PULSE 80; RESP 18; TEMP 36.5
[2023-07-26 00:10] VITALS: BP 112/73; PULSE 80; RESP 18; TEMP 36.5; O2SAT 97
[2023-07-26 00:15] LABS: OBS Int Ctl Valid YES; OBS1 NEGATIVE (NEGATIVE)
[2023-07-26 00:34] LABS: Iron 15 mcg/dL (45-160); Percent Iron Saturation 5 % (15-50); Total Iron Binding Capacity 325 mcg/dL (228-428); Unsaturated Iron Binding 310 ug/dL
== END 2023-07-26 00:12 | disposition home or self-care (01) ==
PROVIDERS: Physician Assistant Medical; Emergency Provider Internal Medicine; PCP Nurse Practitioner Family
DX: D64.9 Anemia, unspecified (principal); C34.92 Malignant neoplasm of unspecified part of left bronchus or lung; I10 Essential (primary) hypertension; J44.9 Chronic obstructive pulmonary disease, unspecified; Z86.711 Personal history of pulmonary embolism; Z79.01 Long term (current) use of anticoagulants
CPT/HCPCS: 36415; 36430; 80048; 80076; 82272; 83540; 83735; 85025; 85610; 85730; 86850; 86900; 86901; 86923; 96360; 99284; 99285; P9016